=== PATIENT | male | born 1975 | race Caucasian/White ===

== ENCOUNTER 2023-02-22 22:26 | Emergency (ER) | payer MEDICAID ==
[2023-02-22] MEDS ORDERED: Naloxone 0.4 MG/ML SDV ONE ×2 (22:27→22:30)
[2023-02-22] MEDS ORDERED: Sodium Chloride 0.9% 2.5 ML Syringe FLUSH PRN (22:33)
[2023-02-22] MEDS ORDERED: Sodium Chloride 0.9% 10 ML Syringe FLUSH PRN (22:33)
[2023-02-22] MEDS ORDERED: Diphtheria,Pertussis(Acell),Tetanus Vaccine 0.5 ML Syringe IM ONE (22:34)
[2023-02-22] MEDS ORDERED: Naloxone 0.4 MG/ML SDV IVPUSH ONE (22:37)
[2023-02-22 22:51] LABS: APPEARANCE,URINE CLEAR; BILIRUBIN,URINE NEGATIVE (NEGATIVE); COLOR,URINE YELLOW; GLUCOSE,URINE NEGATIVE (NEGATIVE); KETONES,URINE 15 mg/dL (NEGATIVE); LEUKOCYTE ESTERASE,URINE NEGATIVE (NEGATIVE); NITRITE,URINE NEGATIVE (NEGATIVE); OCCULT BLOOD,URINE TRACE-INTACT (NEGATIVE); PH,URINE 5.5 (5.0-8.0); PROTEIN,URINE TRACE mg/dL (NEGATIVE); UROBILINOGEN,URINE 0.2 EU/dL (<2.0)
[2023-02-22 23:01] LABS: AMPHETAMINES SCREEN, URINE NEGATIVE (CUTOFF=500); BARBITURATE SCREEN,URINE NEGATIVE (CUTOFF=200); BENZODIAZEPINES SCREEN,URINE NEGATIVE (CUTOFF=150); BUPRENORPHINE SCREEN,URINE NEGATIVE (CUTOFF=10); METHADONE SCREEN, URINE NEGATIVE (CUTOFF=200); METHAMPHETAMINES SCREEN, URINE NEGATIVE (CUTOFF=500); OXYCODONE SCREEN,URINE NEGATIVE (CUT0FF=100); PCP SCREEN,URINE NEGATIVE (CUTOFF=25); PROPOXYPHENE SCREEN,URINE NEGATIVE (CUTOFF=300); THC SCREEN,URINE 20 NG/ML PRESUMPTIVE POSITIVE (CUTOFF=50)
[2023-02-22 23:08] LABS: BACTERIA,URINE FEW (NEGATIVE); EPITHELIAL CELLS,URINE RARE (NONE-FEW); MUCUS,URINE RARE (NONE-MOD); RBC,URINE 0-1 (0-2/HPF); WBC,URINE 0-1 (0-5/HPF)
[2023-02-22 23:54] LABS: BASOPHILS PERCENT AUTO 0.4 % (0.0-1.5); EOSINOPHILS ABSOLUTE AUTO 0.1 K/uL (0.0-0.7); EOSINOPHILS PERCENT AUTO 0.6 % (0.0-7.0); HEMOGLOBIN 16.7 g/dL (13.0-17.0); LYMPHOCYTES ABSOLUTE AUTO 1.1 K/uL (0.6-2.4); LYMPHOCYTES PERCENT AUTO 14.2 % (16.0-40.0); MEAN CORPUSCULAR HEMOGLOBIN 31.6 pg (27.0-32.0); MEAN CORPUSCULAR HGB CONC 35.5 g/dL (31.0-37.0); MEAN CORPUSCULAR VOLUME 88.8 fL (80.0-98.0); MONOCYTES ABSOLUTE AUTO 0.3 K/uL (0.0-0.8); MONOCYTES PERCENT AUTO 3.5 % (0.0-15.0); NEUTROPHILS ABSOLUTE AUTO 6.5 K/uL (1.4-5.7); NEUTROPHILS PERCENT AUTO 81.3 % (48.0-80.0); PLATELET COUNT,PLT 141 K/uL (150-400); RED BLOOD CELL COUNT 5.29 M/uL (4.50-5.90); WHITE BLOOD CELL COUNT,WBC 7.94 K/uL (4.0-11.0)
[2023-02-23 00:24] LABS: LACTIC ACID 6.4 mmol/L (0.4-2.0)
[2023-02-23] MEDS ORDERED: Piperacillin/Tazobactam 4.5 GM in Sodium Chloride 0.9% 100 ML IV ONE (00:29)
[2023-02-23] MEDS ORDERED: Sodium Chloride 0.9% 1,000 ML IV ONE ×3 (00:29→04:51)
[2023-02-23 00:32] LABS: A/G RATIO 0.9 (0.9-1.6); ACETAMINOPHEN <2.0 ug/mL; ALANINE AMINOTRANSFERASE,ALT 64 IU/L (14-63); ALBUMIN 3.9 g/dL (3.4-5.0); ALKALINE PHOSPHATASE 106 U/L (46-116); ASPARTATE AMNIOTRANSFERASE,AST 61 IU/L (15-37); BILIRUBIN TOTAL 0.3 mg/dL (0.2-1.0); BLOOD UREA NITROGEN,BUN 14 mg/dL (7.0-18.0); CALCIUM 8.7 mg/dL (8.5-10.1); CARBON DIOXIDE,CO2 22.9 mmol/L (21.0-32.0); CHLORIDE,CL 102 mmol/L (98-107); CREATININE 1.4 mg/dL (0.8-1.3); EST CRCL DRUG DOSING (CG) 75.02 mL/min; GLUCOSE RANDOM 105 mg/dL (74-106); LIPASE 50 U/L (73-393); PROTEIN TOTAL,TP 8.1 g/dL (6.4-8.2); SALICYLATE 3.1 mg/dL (0.0-20.0); SODIUM,NA 142 mmol/L (136-148); TSH ULTRASENSITIVE 22.66 uIU/mL (0.36-3.74)
[2023-02-23 00:33] LABS: ESTIMATED GFR 62 mL/min (>60); ETHANOL BLOOD MEDICAL 363 mg/dL
[2023-02-23] MEDS ORDERED: Metoprolol Succinate 50 MG Tab.ER PO ONE (04:51)
== END 2023-02-23 06:45 | disposition left against medical advice (07) ==
LOC: MW.ED 22:26
DX: R41.82 Altered mental status, unspecified (principal); E86.0 Dehydration; F10.929 Alcohol use, unspecified with intoxication, unspecified; R00.0 Tachycardia, unspecified; Z23 Encounter for immunization; Z20.822 Contact with and (suspected) exposure to COVID-19
CPT/HCPCS: 36415; 70450; 71045; 72125; 80053; 80143; 80179; 80305; 80307; 81001; 83605; 83690; 83735; 83880; 84439; 84443; 85025; 85610; 87040; 87154; 87635; 90471; 90715; 93005; 96361; 96365; 96375; 99285; A9270; J2310; J2543; J3490; J7030; 87077; 87186; 93010; 99284; U0002